=== PATIENT | female | born 1975 | race Caucasian/White ===

== ENCOUNTER 2016-09-30 04:25 | Emergency (ER) | payer MEDICAID ==
[2016-09-30 04:40] VITALS: RESP 16; TEMP 97.9; O2SAT 93
--- NOTE | 2016-09-30 05:52 | EDPHY ---
H & P Stated Complaint: fell off of bunk c/o rt ankle and lt foot pain Time Seen by Provider: 09/30/16 04:28 HPI/ROS: HPI The patient presents after a fall which occurred just prior to arrival. She was climbing out of a bunk bed in the dark a and fell onto her right ankle. She has sprained this ankle several times. She now has pain on the lateral side of her ankle which is achy, worse when she bears weight, and moderate in severity.. REVIEW OF SYSTEMS Constitutional: No fever, no chills. Musculoskeletal: No back pain. Skin: No rashes. Neurological: No headache. PMHx: Asthma Soc Hx: Currently working, staying at a [facility] PHYSICAL General Appearance: Alert, no distress Eyes: Pupils equal and round no pallor or injection ENT, Mouth: Mucous membranes moist Respiratory: Breathing comfortably Neurological: A&O, moves all extremities Skin: Warm and dry, no rashes Musculoskeletal: Neck is supple non tender Extremities: Right ankle is slightly tender to palpation overlying the lateral malleolus, she has tenderness of her lateral dorsum of her foot as well, there is no effusion, she has full range of motion of the ankle, she has 2+ DP pulses and sensation is intact to light touch Psychiatric: Patient is oriented X 3, there is no agitation Source: Patient Exam Limitations: No limitations - Personal History Current Tetanus Diphtheria and Acellular Pertussis (TDAP): Yes Tetanus Vaccine Date: 4 years - Medical/Surgical History Hx Asthma: Yes Hx Chronic Respiratory Disease: No Hx Diabetes: No Hx Cardiac Disease: No Hx Renal Disease: No Hx Cirrhosis: No Hx Alcoholism: No Hx HIV/AIDS: No Hx Splenectomy or Spleen Trauma: No Other PMH: asthma, etopic - Social History Smoking Status: Current every day smoker Constitutional: Initial Vital Signs Temperature (C) 36.6 C 09/30/16 04:38 Heart Rate 69 09/30/16 04:38 Respiratory Rate 16 09/30/16 04:38 Blood Pressure 107/75 09/30/16 04:38 O2 Sat (%) 93 09/30/16 04:38 O2 Delivery Mode Room Air Allergies/Adverse Reactions: morphine Allergy (Verified 09/30/16 04:41) Penicillins Allergy (Verified 09/30/16 04:41) Home Medications: Medication Instructions Recorded Albuterol 09/30/16 Medical Decision Making - Diagnostics Imaging Results: Right foot x-ray three view shows no fracture, no dislocation, interpreted by me , radiology interpretation is pending. Differential Diagnosis: This is a 41-year-old female who presents after a fall off of a bunk bed now with right foot and ankle pain. Differential diagnosis includes ankle fracture , ankle sprain, foot fracture, foot sprain. Patient had x-ray performed which was unremarkable for any fracture dislocation. She will be discharged from the emergency room with instructions for rest, ice, compression, elevation. Departure - Departure Disposition: Home, Routine, Self-Care Clinical Impression: Right ankle sprain Condition: Good Instructions: Ankle Sprain (ED) Additional Instructions: Please use rest, ice, elevation for your foot and ankle. You should be better in the next 1-2 days. If not I have given you the information for orthopedics for follow-up. Referrals: KARISHMA SANDOVAL [Other] - As per Instructions Usman Martinez MD [Medical Doctor] - As per Instructions
[2016-09-30 06:02] VITALS: BP 105/72; PULSE 68
== END 2016-09-30 06:03 | disposition home or self-care (01) ==
DX: S93.401A Sprain of unspecified ligament of right ankle, initial encounter (principal); J45.909 Unspecified asthma, uncomplicated; F17.200 Nicotine dependence, unspecified, uncomplicated; W18.39XA Other fall on same level, initial encounter; Y99.8 Other external cause status; Y93.39 Activity, other involving climbing, rappelling and jumping off
CPT/HCPCS: L4350

== ENCOUNTER 2016-10-19 07:25 | Emergency (ER) | payer MEDICAID ==
[2016-10-19 07:34] VITALS: BP 102/72; PULSE 85; RESP 16; O2SAT 94
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
[2016-10-19] MEDS ORDERED: AZITHROMYCIN 250 MG TAB PO ONE ×2 (09:26→10:09)
[2016-10-19] MEDS ORDERED: ONDANSETRON DISINTEGRATING 4 MG TAB PO ONE (09:26)
[2016-10-19] MEDS ORDERED: ULIPRISTAL ACETATE 30 MG TAB PO ONE ×2 (09:26→10:09)
[2016-10-19] MEDS ORDERED: ONDANSETRON DISINTEGRATING 4 MG TAB ONE (10:09)
== END 2016-10-19 13:36 | disposition home or self-care (01) ==
LOC: EEVIPCON 07:25
DX: T74.21XA Adult sexual abuse, confirmed, initial encounter (principal); J45.909 Unspecified asthma, uncomplicated; F17.200 Nicotine dependence, unspecified, uncomplicated; Y07.9 Unspecified perpetrator of maltreatment and neglect